=== PATIENT | male | born 1940 | race Caucasian/White ===

== ENCOUNTER 2016-10-03 15:08 | Inpatient (IN) | payer MEDICARE, BC ==
[~2016-10-03] VITALS: Ht 167.6 cm; Wt 78.0 kg
[2016-10-05] MEDS ORDERED: COEN1CAP PO (08:48)
[2016-10-05] MEDS ORDERED: PRAV20TA2 PO (08:48)
[2016-10-05] MEDS ORDERED: GLUCTAB6 PO (08:48)
[2016-10-05] MEDS ORDERED: CHOL1CAP14 PO (08:48)
[2016-10-05] MEDS ORDERED: PANT40TA3 PO (08:48)
[2016-10-05] MEDS ORDERED: OMEG12007 PO (08:48)
[2016-10-05] MEDS ORDERED: NIAC1TAB5 PO (08:48)
[2016-10-05] MEDS ORDERED: LEVO100T5 PO (08:48)
[2016-10-05] MEDS ORDERED: CLOP75TA PO (08:48)
[2016-10-05] MEDS ORDERED: MULT-244 PO (08:48)
--- NOTE | 2016-10-10 18:41 | MH ---
cc: PAULETTE THURSTON DATE OF ADMISSION 10/11/2016 ADMISSION DIAGNOSIS Osteoarthritis of the left knee. HISTORY OF THE PRESENT ILLNESS This patient is a 76-year-old white male who has had 2-1/2 almost 3 [facility]. The patient has had medications, injections, a brace, physical therapy, and altered activities. The patient is having progressive varus deformity of the left leg. Despite conservative care the patient is progressively painful. He now presents for surgical treatment. PAST MEDICAL HISTORY, SOCIAL HISTORY AND FAMILY HISTORY Some see attached notes. REVIEW OF SYSTEMS See attached notes. PHYSICAL EXAMINATION VITAL SIGNS: 5 feet 7 inches, 155 pounds, BMI of 24.3. HEENT: Normocephalic, atraumatic. Pupils equal, round, reactive to light and accommodation. Extraocular motions intact. NECK: Supple. CHEST: Clear. HEART: Regular rate and rhythm. ABDOMEN: Soft, nontender, normoactive bowel sounds. MUSCULOSKELETAL: Short, stature white male in moderate distress with his left knee. Left knee range of motion extension -2, flexion 125, varus deformity. Medial joint line discomfort. Pain with range of motion. NEUROLOGIC: Examination within normal limits. VASCULAR: Examination within normal limits. IMPRESSION Osteoarthritis of the left knee. PLAN Left total knee replacement arthroplasty. CONSENT The risks for surgery including infection, bleeding, loss of motion, continued pain, need for further surgery, neurologic and vascular injury. The patient understands these issues and wishes to press on with surgery as outlined above. MD MARJORIE Flores/KK /6:13 PM /6:35 PM
[2016-10-11] MEDS ORDERED: GENTAMICIN SULFATE 80 MG/2 ML VIAL ONE (06:58)
[2016-10-11] MEDS ORDERED: VANCOMYCIN HCL 1000 MG VIAL ONE (07:13)
[2016-10-11] MEDS ORDERED: SODIUM CHLOR 0.9% 250 ML INJ 250 ML ONE (07:13)
[2016-10-11] MEDS ORDERED: INSULIN HUMAN REGULAR 1,000 UNITS/10 ML VIAL SQ PRN (07:15)
[2016-10-11] MEDS ORDERED: SODIUM CHLORID 0.9% 500 ML IV PRN (07:15)
[2016-10-11] MEDS ORDERED: CHLORHEXIDINE GLUCONATE 2 % 1 PACK (2 CLOTHS) TOPICAL PRN (07:15)
[2016-10-11] MEDS ORDERED: POVIDONE IODINE 5% (ANTISEPSIS KIT) 4 APPLICATIONS EACH NARE PRN (07:15)
[2016-10-11] MEDS ORDERED: METOPROLOL TARTRATE 25 MG TAB PO PRN (07:15)
[2016-10-11] MEDS ORDERED: VANCOMYCIN 1000 MG/NS 250 ML (for <70 kg) IV SCH ×2 (07:15)
[2016-10-11] MEDS ORDERED: ceFAZolin 2 GM PREMIX 50 ML IV SCH (07:15)
[2016-10-11] MEDS ORDERED: LACTATED RINGER'S 1000 ML IV PRN (07:15)
[2016-10-11] MEDS ORDERED: POVIDONE IODINE 7.5% SCRUB 118 ML BOTTLE TOPICAL SCH (07:15)
[2016-10-11 07:28] VITALS: BP 144/79; PULSE 74; RESP 18; TEMP 98.1; O2SAT 95
[2016-10-11] MEDS ORDERED: DEXAMETHASONE SOD PHOS 4 MG/ML VIAL ONE (08:21)
[2016-10-11] MEDS ORDERED: ACETAMINOPHEN 1000 MG/100 ML VIAL IV ONE (08:21)
[2016-10-11] MEDS ORDERED: MIDAZOLAM HCL 2 MG/2 ML VIAL ONE (08:21)
[2016-10-11] MEDS ORDERED: FAMOTIDINE 20 MG/2 ML VIAL ONE (08:21)
[2016-10-11] MEDS ORDERED: SODIUM CHLORIDE 0.9% IV SCH (08:30)
[2016-10-11] MEDS ORDERED: TRANEXAMIC ACID IV SCH (08:30)
[2016-10-11] MEDS ORDERED: EXPAREL PERI-ARTICULAR INJECTION (TOTAL VOL. 60 ML) P-ARTICULR SCH ×2 (08:30)
--- NOTE | 2016-10-11 10:53 | PD.OP ---
cc: Zachary Real MD Operative Report Date of Surgery: Oct 11, 2016 Preoperative Diagnosis: Osteoarthritis left knee, severe Postoperative Diagnosis: Same Procedure: Left total knee replacement arthroplasty Anesthesia: Spinal with regional Surgeon: Zachary Real Budget Assistant(s): RACHEL Dior Operation and Findings: EBL: 100 cc INDICATION: This patient presents with long-standing arthritis of the knee. Attachment record documents conservative measures. The patient now presents for surgical treatment. NOTE: Rose Dior PA-C was present for the entire surgical procedure as my assistant tennis professional. In my medical opinion her skill and care was necessary for proper management of this patient. TOURNIQUET TIME: 58 minutes COMPANY: [employer] FEMUR: Size 4, cruciate retaining TIBIA: Size 4, fixed bearing PATELLA: 35 mm POLYETHYLENE INSERT: 9 mm PROCEDURE: This patient was brought the operating room and anesthetized in the supine position. The patient was positioned supine on the table. The tourniquet was placed about the thigh, and the leg was scrubbed with alcohol followed by Hibiclens followed by ChloraPrep and draped sterilely. A timeout was done, and antibiotics were given. After exsanguination the tourniquet was inflated to 250 mmHg. An anterior incision was made and a median parapatellar arthrotomy was performed. The patella was released laterally and subluxed allowing freehand cut of the patella which was then sized. A metal cap was placed over the exposed patellar surface for protection. A line pilot hole was placed in the distal femur allowing a 5 valgus cut removing 10 mm from the distal femur. Anterior posterior and chamfer cuts were made. The posterior stabilize osteotomy was made. The attention was directed to the tibia. Retractors were positioned. The external alignment guide was used allowing the lateral tibia to be used as referencing guide and cut utilizing an oscillating saw taking care to avoid any injury to the surrounding soft tissues. This was sized properly. Trial reduction showed that the insert fit nicely. The patient had range of motion extension 0 flexion 125. A medial release was not necessary. The bony surfaces prepared. On the back table 2 packets of methylmethacrylate were mixed. The components were cemented. Excess cement was removed. The tourniquet let down and hemostasis was controlled. The final plastic insert was inserted. Range of motion was the same as previously noted. A drain was brought through a separate stab incision. The arthrotomy was repaired with interrupted #1 Vicryl suture, subcutaneous tissue 2-0 Vicryl suture and skin with metallic bib A sterile dressing was applied. Sponge counts, needle counts and instrument counts were all correct. The patient tolerated procedure well and was taken to recovery in satisfactory condition. FINDINGS: There was severe osteoarthritis especially of the medial compartment. Significant lateral compartment erosive changes on the medial aspect of the lateral compartment. No complication was appreciated. Zachary Real MD Oct 11, 2016 10:53
[2016-10-11] MEDS ORDERED: XARE10TA PO (10:55)
[2016-10-11] MEDS ORDERED: OXYC1TAB63 PO (10:55)
[2016-10-11] MEDS ORDERED: TEMAZEPAM 15 MG CAP PO PRN (11:00)
[2016-10-11] MEDS ORDERED: MISCELLANEOUS NURSING INFORMATION XX PRN (11:00)
[2016-10-11] MEDS ORDERED: MORPHINE SULFATE 30 MG/30 ML PCA IV SCH (11:00)
[2016-10-11] MEDS ORDERED: MORPHINE SULFATE 8 MG/ML INJ IM PRN (11:00)
[2016-10-11] MEDS ORDERED: oxyCODONE/ACETAMINOPHEN 5 MG/325 MG TAB PO PRN (11:00)
[2016-10-11] MEDS ORDERED: NALOXONE HCL 0.4 MG/ML AMP IV PRN (11:00)
[2016-10-11] MEDS ORDERED: MISCELLANEOUS PHARMACY INFORMATION XX ONE (11:00)
[2016-10-11] MEDS ORDERED: SODIUM CHLORIDE 0.9% FLUSH 5 ML FLUSH IVF PRN (11:00)
[2016-10-11] MEDS ORDERED: *morphine SULFATE 8 MG/ML PERIprocedure ONLY ONE ×2 (11:28→11:41)
[2016-10-11] MEDS ORDERED: DO NOT ADM ANY ANTICOAGULANT DRUGS PRN (11:30)
[2016-10-11] MEDS ORDERED: Post-op Orders (for Pharmacy) MISC XX ONE (11:30)
[2016-10-11] MEDS: LACTATED RINGER'S 1000 ML INJ 1,000 ML IV SCH ×2 (12:15→23:34)
--- NOTE | 2016-10-11 12:15 | RADRPT ---
EXAM DATE/TIME: 10/11/2016 11:42 [facility] COMPARISON: No previous studies available for comparison. INDICATIONS : Post Op Knee replacement. MEDICAL HISTORY : unobtainable SURGICAL HISTORY : unobtainable ENCOUNTER: Initial ACUITY: 1 day PAIN SCORE: Non-responsive. LOCATION: Left Knee FINDINGS: AP and lateral views of the left knee demonstrate changes consistent with recent total knee arthropla sty with metallic hardware in place in the distal femur and proximal tibia. There is a radiolucent pa tellar component. Skin bib are present anteriorly. There is soft tissue gas present, as expected. A surgical drain is in place. CONCLUSION: Expected findings following recent left total knee arthroplasty. Winston Harris MD on October 11, 2016 at 12:12 Board Certified Radiologist. This report was verified electronically.
[2016-10-11] MEDS ORDERED: BUPIVACAINE LIPOSOME PF 1.3% 20 ML VIAL ONE (12:28)
[2016-10-11] MEDS ORDERED: DEXAMETHASONE SOD PHOS PF 10 MG/ML VIAL IV ONE (12:28)
[2016-10-11] MEDS ORDERED: BUPIVACAINE HCL PF 0.25% 30 ML VIAL NERV BLOCK ONE (12:28)
[2016-10-11 13:05] VITALS: BP 141/75; PULSE 65; RESP 16; TEMP 95.3; O2SAT 97
[2016-10-11 13:59] VITALS: O2SAT 96
[2016-10-11] MEDS: PCA - TOTAL MG MORPHINE DELIVERED PER SHIFT SCH ×2 (14:00→20:15)
[2016-10-11] MEDS ORDERED: PROPOFOL 200 MG/20 ML AMP IV ONE (14:07)
[2016-10-11] MEDS ORDERED: LACTATED RINGER'S 1000 ML INJ 1,000 ML IV ONE (14:08)
[2016-10-11 16:00] VITALS: BP 135/69; PULSE 71; RESP 16; TEMP 95.1; O2SAT 96
[2016-10-11] MEDS: PRAVASTATIN SOD 20 MG TAB PO SCH (20:13)
[2016-10-11] MEDS: SODIUM CHLORIDE 0.9% FLUSH 5 ML FLUSH IVF SCH (20:14)
[2016-10-11] MEDS: MAGNESIUM HYDROXIDE SUSP 30 ML CUP PO SCH (20:14)
[2016-10-11] MEDS: SENNOSIDES 8.6 MG TAB PO SCH (20:14)
[2016-10-11 20:30] VITALS: BP 145/73; PULSE 76; RESP 17; TEMP 97.4; O2SAT 94
[2016-10-12] VITALS (7 sets, daily range): BP systolic 121–151; BP diastolic 65–77; PULSE 73–85; RESP 15–18; TEMP 96.3–98.4; O2SAT 93–96
[2016-10-12] MEDS: LEVOTHYROXINE SODIUM 100 MCG TAB PO SCH (04:17)
[2016-10-12] MEDS: oxyCODONE/ACETAMINOPHEN 5 MG/325 MG TAB PO PRN ×3 (04:17→16:55)
[2016-10-12] MEDS: PCA - TOTAL MG MORPHINE DELIVERED PER SHIFT SCH (05:17)
[2016-10-12 07:24] LABS: HEMATOCRIT 38.2 % (39.0-51.0); REVIEW FLAG FINAL
[2016-10-12] MEDS ORDERED: CPMMACHINE (07:48)
[2016-10-12] MEDS ORDERED: COMMODE 3-IN-11 MIS (07:48)
[2016-10-12] MEDS ORDERED: WALKER WHEELS/F1 MIS (07:49)
--- NOTE | 2016-10-12 07:49 | PD.ORT.PN ---
Subjective Subjective Remarks No complaints. Lying comfortably in bed Mild to moderate pain this morning Objective Vitals Vital Signs Date Time Temp Pulse Resp B/P Pulse Ox O2 Delivery O2 Flow Rate FiO2 10/12/16 05:17 16 10/12/16 04:00 96.7 84 17 144/70 94 10/12/16 00:00 98.4 82 18 121/67 93 10/11/16 20:30 97.4 76 17 145/73 94 10/11/16 20:15 16 10/11/16 16:00 95.1 71 16 135/69 96 10/11/16 14:00 16 10/11/16 13:59 96 Nasal Cannula 2.00 10/11/16 13:05 95.3 65 16 141/75 97 10/11/16 12:20 14 10/11/16 12:15 97.4 60 15 136/73 96 Room Air 10/11/16 12:00 62 14 137/85 98 Nasal Cannula 2.5 10/11/16 11:45 63 15 141/90 97 Nasal Cannula 2.5 10/11/16 11:30 55 14 144/84 97 Nasal Cannula 2.5 10/11/16 11:22 97.5 59 14 155/85 96 Nasal Cannula 2.5 I/O 10/11/16 10/11/16 10/11/16 10/12/16 10/12/16 10/12/16 07:00 15:00 23:00 07:00 15:00 23:00 Intake Total 1300 ml 480 ml 240 ml Output Total 750 ml 720 ml 1540 ml Balance 550 ml -240 ml -1300 ml Intake Oral 480 ml 240 ml IV Total 100 ml Other 1200 ml Output Urine Total 650 ml 600 ml 1400 ml Drainage Total 0 ml 120 ml 140 ml Estimated Blood Loss 100 ml # Bowel Movements 0 Result Diagram: 10/12/16 0707 Imaging Last 24 hours Impressions Knee X-Ray 10/11/16 1047 Signed Impressions: Service Date/Time: October 11:42 - CONCLUSION: Expected findings following recent left total knee arthroplasty. Winston Harris MD Objective Remarks Dressing dry. No abnormal swelling. X-rays look fine. Minimal drainage. No calf tenderness. Negative Homans sign Assessment & Plan Ortho Post Op Day #: 1 Problem List: Assessment and Plan Osteoarthritis left knee. Left TKA: POD #1 PLAN: Weightbearing as tolerated Xarelto for anticoagulation for 15 days DCP CA By mouth meds Discharge to home on Saturday Home healthcare Home physical therapy No dressing change Zachary Real MD Oct 12, 2016 07:49
--- NOTE | 2016-10-12 07:49 | HHI.DCPOC ---
Discharge Care Plan Diagnosis: (1) Left knee pain (2) Osteoarthritis of left knee Your Health Problems Are: Incision/Drains Inflammation Goals to Promote Your Health * To prevent worsening of your condition and complications * To maintain your health at the optimal level Directions to Meet Your Goals Take your medications as prescribed Follow your dietary instruction Follow activity as directed Keep your appointments as scheduled Take your immunizations and boosters as scheduled If your symptoms worsen call your PCP, if no PCP go to Urgent Care Center or Emergency Room Smoking is Dangerous to Your Health. Avoid second hand smoke Call the 24-hour hour crisis hotline for domestic abuse at Sveta Gary Oct 12, 2016 07:49
--- NOTE | 2016-10-12 07:50 | HHI.FF ---
Face to Face Verification Diagnosis: (1) Left knee pain (2) Osteoarthritis of left knee Physical Therapy Gait training, Safety evaluation, Transfer training, bed to chair Knee: Total knee, Protocol: Left, Full weight bearing Canvas Knee Splint: When in bed & 2 pillows btw thighs Left LE Weight Bearing: WB as tolerated Additional Instructions PT 4 days/wk for 2 weeks. WBAT LLE. TKA protocol. CKS when in bed for 3 weeks. CPM - 0 to 60 w goal of 100 flexion, advance 5-10 degrees daily. Nursing RN Days per Week: 2 x Week(s): 1 Dressing Changes: Do not change dressing Additional Instructions Hold dressing changes unless saturated. Vitals assessment. I have seen patient Sam Rojo on 10/12/16. My clinical findings support the need for the requested home health care services because: Limited ability to care for self High risk of falls I certify that my clinical findings support that this patient is homebound because: Post-op weakness Unsteady gait/balance Sveta Gary Oct 12, 2016 07:50
--- NOTE | 2016-10-12 07:51 | HHI.DS ---
Discharge Summary Admission Date Oct 11, 2016 at 06:52 Discharge Date: Oct 13, 2016 Admitting Diagnosis see below Diagnosis: (1) Left knee pain Diagnosis: Principal (2) Osteoarthritis of left knee Diagnosis: Principal Procedures Left total knee arthroplasty Brief History This is a 76 year old male patient CBC/BMP: 10/12/16 0707 Significant Findings Laboratory Tests Test 10/12/16 07:07 Hemoglobin 12.7 GM/DL (13.0-17.0) Hematocrit 38.2 % (39.0-51.0) PE at Discharge Dressing dry. No abnormal swelling. X-rays look fine. Minimal drainage. No calf tenderness. Negative Homans sign Discharge Disposition: Discharge Home Discharge Instructions Diet Instructions: As Tolerated, No Restrictions Activities You Can Perform: Weight Bearing as Sveta Umana Oct 12, 2016 07:51
[2016-10-12] MEDS: SODIUM CHLORIDE 0.9% FLUSH 5 ML FLUSH IVF SCH ×2 (08:05→20:40)
[2016-10-12] MEDS: MAGNESIUM HYDROXIDE SUSP 30 ML CUP PO SCH ×2 (08:05→20:41)
[2016-10-12] MEDS: PANTOPRAZOLE SOD 40 MG DELAYED RELEASE TAB PO SCH (08:05)
[2016-10-12] MEDS: RIVAROXABAN 10 MG TAB PO SCH (10:18)
[2016-10-12] MEDS: LACTATED RINGER'S 1000 ML INJ 1,000 ML IV SCH ×2 (11:47→21:30)
[2016-10-12] MEDS: SENNOSIDES 8.6 MG TAB PO SCH (20:41)
[2016-10-12] MEDS: PRAVASTATIN SOD 20 MG TAB PO SCH (20:41)
[2016-10-13] VITALS: BP 143/67; PULSE 94; RESP 18; TEMP 97.4; O2SAT 93
[2016-10-13] MEDS: LEVOTHYROXINE SODIUM 100 MCG TAB PO SCH (05:51)
[2016-10-13] MEDS: oxyCODONE/ACETAMINOPHEN 5 MG/325 MG TAB PO PRN ×2 (05:51→10:20)
[2016-10-13 07:15] VITALS: BP 137/71; PULSE 96; RESP 18; TEMP 98; O2SAT 93
--- NOTE | 2016-10-13 08:31 | PD.ORT.PN ---
Subjective Subjective Remarks No complaints. Lying comfortably in bed Mild pain this morning Objective Vitals Vital Signs Date Time Temp Pulse Resp B/P Pulse Ox O2 Delivery O2 Flow Rate FiO2 10/13/16 07:15 98.0 96 18 137/71 93 10/13/16 00:00 97.4 94 18 143/67 93 10/12/16 20:00 97.1 85 16 125/67 94 10/12/16 16:00 97.1 73 15 151/71 96 10/12/16 12:00 96.3 84 17 141/77 96 10/12/16 10:51 95 21 I/O 10/12/16 10/12/16 10/12/16 10/13/16 10/13/16 10/13/16 07:00 15:00 23:00 07:00 15:00 23:00 Intake Total 240 ml 720 ml 480 ml 240 ml Output Total 1540 ml 730 ml 500 ml 450 ml Balance -1300 ml -10 ml -20 ml -210 ml Intake Oral 240 ml 720 ml 480 ml 240 ml Output Urine Total 1400 ml 600 ml 500 ml 450 ml Drainage Total 140 ml 130 ml # Voids 2 1 2 # Bowel Movements 0 0 Result Diagram: 10/12/16 0707 Imaging Last 24 hours Impressions Knee X-Ray 10/11/16 1047 Signed Impressions: Service Date/Time: October 11:42 - CONCLUSION: Expected findings following recent left total knee arthroplasty. Winston Harris MD Procedures Left total knee arthroplasty Objective Remarks Dressing dry. No abnormal swelling. Minimal drainage. No calf tenderness. Negative Homans sign Assessment & Plan Ortho Post Op Day #: 2 Problem List: (1) Left knee pain (2) Osteoarthritis of left knee Assessment and Plan Osteoarthritis left knee. Left TKA: POD #2 PLAN: Weightbearing as tolerated Xarelto for anticoagulation for 15 days Discharge to home today Home healthcare Home physical therapy No dressing change Stable orthopedically Zachary Real MD Oct 13, 2016 08:31
[2016-10-13] MEDS: MAGNESIUM HYDROXIDE SUSP 30 ML CUP PO SCH (09:00)
[2016-10-13] MEDS: SODIUM CHLORIDE 0.9% FLUSH 5 ML FLUSH IVF SCH (09:00)
[2016-10-13] MEDS: PANTOPRAZOLE SOD 40 MG DELAYED RELEASE TAB PO SCH (09:12)
[2016-10-13] MEDS: RIVAROXABAN 10 MG TAB PO SCH (09:12)
== END 2016-10-13 13:25 | disposition home health service (06) | DRG 470 ==
LOC: HSDI 10-11 06:52 → N06A 10-11 12:46
PROVIDERS: ADMIT Orthopaedic Surgery Orthopaedic Surgery of the Spine; ATTEND Orthopaedic Surgery Orthopaedic Surgery of the Spine
PROC: 3E0T3BZ Introduction of Anesthetic Agent into Peripheral Nerves and Plexi, Percutaneous Approach (ICD-10-PCS; 2016-10-11)
PROC: 0SRD0J9 Replacement of Left Knee Joint with Synthetic Substitute, Cemented, Open Approach (ICD-10-PCS; principal; 2016-10-11 08:25)
DX: M17.12 Unilateral primary osteoarthritis, left knee (principal); M21.162 Varus deformity, not elsewhere classified, left knee; I10 Essential (primary) hypertension; E78.5 Hyperlipidemia, unspecified; M54.9 Dorsalgia, unspecified; K21.9 Gastro-esophageal reflux disease without esophagitis; Z86.73 Personal history of transient ischemic attack (TIA), and cerebral infarction without residual deficits
CPT/HCPCS: 73560; 85014; 85018; 86850; 86900; 86901; 86920; 94150; C1776; C9290; J0131; J0690; J1100; J1580; J2250; J2270; J3010; J3370; J7050; J7120; L1830

== ENCOUNTER → 2016-10-05 | Outpatient (CLI) | payer MEDICARE, BC ==
[~2016-10-05] MED LIST: CHOL1CAP14 PO; CLOP75TA PO; COEN1CAP PO; COMMODE 3-IN-11 MIS; CPMMACHINE; GLUCTAB6 PO; LEVO100T5 PO; MULT-244 PO; NIAC1TAB5 PO; OMEG12007 PO; OXYC1TAB63 PO; PANT40TA3 PO; PRAV20TA2 PO; WALKER WHEELS/F1 MIS; XARE10TA PO
[2016-10-05 09:18] LABS: BLOOD, URINE NEG (NEG); COMMENT (UR) CULT NOT INDICATED; CULTURE IF INDICATED CULT NOT INDICATED; GLUCOSE,URINE NEG (NEG); KETONE, URINE NEG (NEG); NITRITE,URINE NEG (NEG); URINE COLOR YELLOW (YELLW/STRAW)
[2016-10-05 09:29] LABS: BASOPHIL # 0.1 TH/MM3 (0-0.2); EOSINOPHIL # 0.3 TH/MM3 (0-0.4); EOSINOPHIL % 5.9 % (0.0-4.0); HEMATOCRIT 47.1 % (39.0-51.0); LYMPH % 29.9 % (9.0-44.0); LYMPHOCYTE # 1.7 TH/MM3 (1.0-4.8); MEAN CORPUSCULAR HEMOGLOBIN 30.5 PG (27.0-34.0); MEAN CORPUSCULAR HGB CONC 33.5 % (32.0-36.0); MONO % 10.3 % (0.0-8.0); NEUT % 52.9 % (16.0-70.0); PLATELET COUNT 190 TH/MM3 (150-450); RED BLOOD COUNT 5.18 MIL/MM3 (4.50-5.90); RED CELL DISTRIBUTION WIDTH 13.8 % (11.6-17.2); WHITE BLOOD COUNT 5.6 TH/MM3 (4.0-11.0)
[2016-10-05 09:32] LABS: HEMO FLAGS AUTO DIFF
[2016-10-05 09:37] LABS: APTT (PATIENT) 25.9 SEC (24.3-30.1); INTERNATIONAL NORMALIZED RATIO 0.9 RATIO; PROTHROMBIN TIME - PATIENT 10.4 SEC (9.8-11.6)
[2016-10-05 09:48] LABS: BICARBONATE 28.2 MEQ/L (21.0-32.0); POTASSIUM 4.5 MEQ/L (3.5-5.1)
[2016-10-05 09:55] LABS: WESTERGREN SEDIMENTATION RATE 1 mm/hr (0-20)
[2016-10-05 10:53] LABS: SCAN/DIFF AUTO DIFF CONFIRMED
--- NOTE | 2016-10-05 14:35 | EKG ---
Date Performed: 10/05/2016 Time Performed: 08:34:32 PTAGE: 76 years EKG: Sinus rhythm BORDERLINE LEFT AXIS DEVIATION BORDERLINE ECG NO SIGNIFICANT CHANGE FROM PRIOR ELECTROCARDIOGRAM. PREVIOUS TRACING : 02/15/2006 08.26 DOCTOR: López Leiva Interpretating Date/Time 10/05/2016 14:33:09
== END ==
LOC: CPRE 08:04
PROVIDERS: ATTEND Orthopaedic Surgery Orthopaedic Surgery of the Spine
DX: Z01.810 Encounter for preprocedural cardiovascular examination (principal); Z79.01 Long term (current) use of anticoagulants; M17.12 Unilateral primary osteoarthritis, left knee; R94.31 Abnormal electrocardiogram [ECG] [EKG]
CPT/HCPCS: 36415; 80048; 81001; 85025; 85610; 85652; 85730; 93005